=== PATIENT | female | born 1990 | race Two or more races ===

== ENCOUNTER 2022-08-14 16:05 | Emergency (ER) | payer BC ==
[2022-08-14] MEDS ORDERED: D50W 25 GM/50 ML SYRINGE IV ONE (16:06)
[2022-08-14] MEDS ORDERED: NA CHLORIDE 0.9% 1,000 ML IV ONE (16:06)
[2022-08-14] MEDS ORDERED: EPINEPHrine 1 MG/10 ML SYR IV ONE (16:06)
--- NOTE | 2022-08-14 16:37 | EDPHYS ---
Physician Documentation [facility] Name: Stephanie Cerda Age: 32 yrs Sex: Female : 1990 Arrival Date: 08/14/2022 Time: 16:05 Bed 2 Private MD: ED Physician Zachary Herndon HPI: 08/14 16:27 This 32 yrs old Female presents to ER via Unassigned with complaints of cpr. rn 16:27 Preceding the arrest, the patient was found down by family. The arrest occurred at rn home. Pre-hospital course: The arrest was not witnessed by others. Bystanders at the scene performed CPR. EMS care prior to arrival: initiation of ACLS, oxygen, backboard, ACLS has been in progress for 25 minutes. ACLS details: Initial rhythm was asystole. The presenting rhythm is asystole. Airway: franklin tube, Response to therapy: continued arrest. It is unknown whether or not the patient has had similar symptoms in the past. Pt with seizure disorder, was [place] beach, reported abd cramping and had to use bathroom, found down on back by family with emesis and concern for aspiration, rolled her to side and performed CPR. EMS arrived, now 2 min into protocols, still asystole, franklin tube in place. . Historical: - Allergies: 16:40 No Known Allergies; ss - Home Meds: 16:43 None [Active]; ss - PMHx: 16:40 seizures; ss - PSHx: 16:43 None; ss - Immunization history:: Adult Immunizations unknown. - Social history:: Smoking status: Patient reports the use of cigarette tobacco products, smokes one-half pack cigarettes per day. - Unable to obtain history due to: unresponsive. ROS: 16:27 Unable to obtain ROS due to comatose state. rn Exam: 16:27 Head/Face: cyanosis from chest up Eyes: Unresponsive ENT: franklin tube in place with rn blood and emesis still escaping from mouth Cardiovascular: Pulseless Respiratory: Coarse bilateral breath sounds with bagging Skin: Cyanosis from chest up, cool extremities and pale elsewhere Neuro: GCS 3 16:27 Constitutional: The patient appears comatose. Vital Signs: 15:45 Pulse 0; Resp 22 A; ss 16:00 Temp 96.2; ss Procedures: 16:27 CPR: See CPR flow sheet. Initial patient assessment: unresponsive, cyanotic, no rn respiratory effort, pulses present w/ compressions, The presenting cardiac rhythm is asystole. Compressions: began prior to arrival. Meds given: See Meds list. despite ED evaluation and treatment, the patient . Family notified. CPR was stopped at 16:12. 16:27 Intubation: Ventilated with 100% NRB prior to procedure. O2 saturation prior to rn progressive care was 40 %. Intubated orally using # 4 Estuardo blade with 7.0 mm ETT. was successful on first attempt. Cricoid pressure applied during procedure. Tube secured at right side of mouth measured 23 cm at lip. Placement verified by auscultating bilateral breath sounds, O2 saturation after procedure was 60 %. Patient tolerated well, used glidescope with visualization through the cords confirmed. MDM: 16:07 Patient medically screened. kb 16:27 Differential diagnosis: arrythmia, cardiac arrest, respiratory arrest, asphyxiation, rn aspiration, seizure, head injury. Data reviewed: vital signs, nurses notes. 16:35 Counseling: I had a detailed discussion with the patient and/or guardian regarding: the rn historical points, exam findings, and any diagnostic results supporting the discharge/admit diagnosis. Response to treatment: There is no appreciated change of the patient's symptoms at this time. 16:36 ED course: glucose in 50s, up to 106 . rn 08/14 16:15 Order name: glucometer results - FOR PT WITH NO ID 08/14 16:15 Order name: glucometer results - FOR PT WITH NO ID 08/14 16:23 Order name: Glucose, Ancillary Testing EDMN 08/14 18:38 Order name: glucometer results - FOR PT WITH NO ID ss Administered Medications: 15:50 Drug: EPINEPHrine 1:10,000 IVP 1 mg Route: IVP; Site: left forearm; ss 16:00 Follow up: Response: No adverse reaction ss 15:50 Drug: D50W IVP 50 ml Route: IVP; Site: left forearm; ss 16:00 Follow up: Response: No change in condition ss 15:51 Drug: NS 0.9% IV 1000 ml Route: IV; Rate: 1000 ml; Site: left forearm; ss 15:54 Drug: EPINEPHrine 1:10,000 IVP 1 mg Route: IVP; Site: left forearm; ss 15:57 Follow up: Response: No change in condition ss 15:54 Drug: Sodium Bicarbonate IVP 1 amp Route: IVP; Site: left forearm; ss 16:00 Follow up: Response: No change in condition ss 15:58 Drug: EPINEPHrine 1:10,000 IVP 1 mg Route: IVP; Site: left forearm; ss 16:01 Follow up: Response: No change in condition ss 16:01 Drug: D10 250 ml Route: IV; Rate: bolus; Site: left forearm; ss 16:10 Follow up: IV Status: Completed infusion; Completed infusion, blood sugar increased ss 16:02 Drug: EPINEPHrine 1:10,000 IVP 1 mg Route: IVP; Site: left forearm; ss 16:05 Follow up: Response: No change in condition ss 16:06 Drug: EPINEPHrine 1:10,000 IVP 1 mg Route: IVP; Site: left forearm; ss 16:09 Follow up: Response: No change in condition ss 16:07 Drug: Sodium Bicarbonate IVP 1 amp Route: IVP; Site: left forearm; ss 16:10 Follow up: Response: No adverse reaction ss Disposition Summary: 08/14/22 16:36 Patient Location: Lathe Mechanic rn Pronouncing Physician: Zachary Herndon rn Time of : 16:12 08/14/2022 rn Diagnosis - Cardiac arrest, cause unspecified rn - Aspiration rn Signatures: Dispatcher [employer] Cierra Briggs, PATTERN MAKER-C PATTERN MAKER-Ckb Zachary Herndon MD MD rn Blanchard, Shelby, RN RN
--- NOTE | 2022-08-14 16:37 | ER ---
Nurse's Notes [facility] Name: Stephanie Cerda Age: 32 yrs Sex: Female : 1990 Arrival Date: 08/14/2022 Time: 16:05 Bed 2 Private MD: Diagnosis: Cardiac arrest, cause unspecified;Aspiration Presentation: 08/14 15:45 Acuity: LULU 1 ss 15:45 Chief complaint: EMS states: Pt found pulseless on porch by family member after ss visiting [place]. CPR initiated at that time. Unknown downtime. Last seen normal approximately 45 minutes prior. EMS noted rhythm to be asystole, CPR continued by EMS personnel. Pt intubated en route to ED with Will tube, and suctioned copious amounts of dark red secretions with food particles. Care prior to arrival: CPR manually performed by bystander performed by EMS and is still in progress. Compressions began prior to arrival. 15:45 Method Of Arrival: EMS: [facility] ss 15:45 Coronavirus screen: Client denies travel out of the [place] in the last 14 days. Ebola ss Screen: Patient denies exposure to infectious person. Patient denies travel to an Ebola-affected area in the 21 days before illness onset. Initial Sepsis Screen: Does the patient meet any 2 criteria? No. Patient's initial sepsis screen is negative. Does the patient have a suspected source of infection? No. Patient's initial sepsis screen is negative. Risk Assessment: Do you want to hurt yourself or someone else? Patient reports no desire to harm self or others. Note Family reports that patient had been drinking ETOH today. 15:45 Onset of symptoms was August 14, 2022. ss Historical: - Allergies: 16:40 No Known Allergies; ss - Home Meds: 16:43 None [Active]; ss - PMHx: 16:40 seizures; ss - PSHx: 16:43 None; ss - Immunization history:: Adult Immunizations unknown. - Social history:: Smoking status: Patient reports the use of cigarette tobacco products, smokes one-half pack cigarettes per day. - Unable to obtain history due to: unresponsive. Screenin:12 [place] ED Fall Risk Assessment (Adult) History of falling in the last 3 months, ss including since admission No falls in past 3 months (0 pts). Abuse screen: Denies threats or abuse. Denies injuries from another. Nutritional screening: No deficits noted. Tuberculosis screening: Never had TB. Assessment: 15:45 CPR assessment: unresponsive, no respiratory effort, Ambu ventilation, cyanotic. ss Cardiac rhythm is asystole. 15:47 Reassessment: Pulse Check. No pulse. Asystole. CPR resumed. ss 15:50 Reassessment: Pulse Check, No pulse. Asystole. CPR resumed. ss 15:53 Reassessment: Pulse check. No pulse. Asystole. CPR resumed. ss 15:55 Reassessment: Pulse check. no pulse. Asystole. CPR resumed. ss 15:57 Reassessment: Pulse check. No pulse. Asystole, CPR resumed. ss 16:02 Reassessment: pulse check. No pulse. CPR resumed. Mother at bedside during code at this ss time. 16:04 Reassessment: Pulse check. No pulse. Asystole. CPR resumed. ss 16:07 Reassessment: Pulse check. No pulse. Asystole. CPR resumed. ss 16:09 Reassessment: Pulse check. No pulse. Asystole. CPR resumed. ss 16:11 Reassessment: Pulse check. No pulse. Asystole. CPR resumed. 16:12 Reassessment: Time of called. Vital Signs: 15:45 Pulse 0; Resp 22 A; ss 16:00 Temp 96.2; ss ED Course: 15:45 Arm band placed on right wrist. ss 15:49 Inserted saline lock: 18 gauge in left forearm, using aseptic technique. ,using aseptic technique. insertion by ROSANNA Zarate. 15:49 Assisted provider with intubation using 7.5 mm ETT via oral route. ET tube secured at ss 23cm at the teeth. Set up intubation tray. Intubated by Zachary Herndon MD Placement verified by CO2 detector w/ + color change, Patient tolerated Unresponsive. 15:55 18 F OG inserted. Moderate amount of food particles and dark red liquid returned. ss 16:07 Patient arrived in ED. eb 16:07 Zachary Herndon MD is Attending Physician. kb 16:10 Patient has correct armband on for positive identification. ss 16:16 [employer] [place] [employer] will send an officer to be with the patient and eb call the rehabilitation medicine physician regional vice president life sales. 16:36 Zachary Herndon MD is Pronouncing Provider. rn 16:40 Triage completed. ss 16:50 Belkis Reynolds RN is Primary Nurse. ss Administered Medications: 15:50 Drug: EPINEPHrine 1:10,000 IVP 1 mg Route: IVP; Site: left forearm; ss 16:00 Follow up: Response: No adverse reaction ss 15:50 Drug: D50W IVP 50 ml Route: IVP; Site: left forearm; ss 16:00 Follow up: Response: No change in condition ss 15:51 Drug: NS 0.9% IV 1000 ml Route: IV; Rate: 1000 ml; Site: left forearm; ss 15:54 Drug: EPINEPHrine 1:10,000 IVP 1 mg Route: IVP; Site: left forearm; ss 15:57 Follow up: Response: No change in condition ss 15:54 Drug: Sodium Bicarbonate IVP 1 amp Route: IVP; Site: left forearm; ss 16:00 Follow up: Response: No change in condition ss 15:58 Drug: EPINEPHrine 1:10,000 IVP 1 mg Route: IVP; Site: left forearm; ss 16:01 Follow up: Response: No change in condition ss 16:01 Drug: D10 250 ml Route: IV; Rate: bolus; Site: left forearm; ss 16:10 Follow up: IV Status: Completed infusion; Completed infusion, blood sugar increased ss 16:02 Drug: EPINEPHrine 1:10,000 IVP 1 mg Route: IVP; Site: left forearm; ss 16:05 Follow up: Response: No change in condition ss 16:06 Drug: EPINEPHrine 1:10,000 IVP 1 mg Route: IVP; Site: left forearm; ss 16:09 Follow up: Response: No change in condition ss 16:07 Drug: Sodium Bicarbonate IVP 1 amp Route: IVP; Site: left forearm; ss 16:10 Follow up: Response: No adverse reaction ss Medication: 16:12 VIS not applicable for this client. Outcome: 16:12 Outcome Patient ss 16:12 Patient : Time of 16:12 Pronounced by Zachary Herndon MD 16:12 Condition: 21:04 Patient left the ED. [email or web address] Signatures: Cierra Mccoy, ENGLISH COMPOSITION TEACHER-C ENGLISH COMPOSITION TEACHER-Ckb Zachary Herndon MD MD rn Blanchard, Shelby, RN RN Pancho Parsons RN RN [id number] Heydi Shields Corrections: (The following items were deleted from the chart) 16:42 15:45 Chief complaint: EMS states: Pt found pulseless on porch by family member after ss [place]. CPR initiated at that time. Unknown downtime. Last seen normal approximately 45 minutes prior. EMS noted rhythm to be asystole, CPR continued by EMS personnel. Pt intubated en route to ED with Will tube, and suctioned copious amounts of dark red secretions with food particles. 17:13 17:13 D10 250 ml IV at bolus in left forearm [facility] 17:35 16:47 Reassessment: Pulse Check. No pulse. Asystole. CPR resumed [facility]
== END 2022-08-14 21:04 ==
LOC: ER 16:05
DX: I46.9 Cardiac arrest, cause unspecified (principal); T17.918A Gastric contents in respiratory tract, part unspecified causing other injury, initial encounter; F17.210 Nicotine dependence, cigarettes, uncomplicated
CPT/HCPCS: 36415; 82947 ×3; 31500; 92950; 99285; J0171; J7030